=== PATIENT | male | born 1950 | race African-American/Black ===

== ENCOUNTER 2019-03-30 18:50 | Emergency (ER) | payer BC, OTHER ==
[~2019-03-30] VITALS: Ht 185.4 cm; Wt 104.3 kg
[2019-03-30 20:43] VITALS: BP 132/80
[2019-03-30] MEDS ORDERED: GENTAMICIN OPTH sol 0.3% 5ml EACHEYE ONE (21:00)
[2019-03-30] MEDS ORDERED: FLUORESCEIN SOD 1 MG TEST STRIP EACHEYE ONE (21:00)
[2019-03-30] MEDS ORDERED: TETRACAINE HCL 0.5% OPTH(EYE) SOLN 4ML EACHEYE ONE (21:00)
== END 2019-03-30 21:50 | disposition home or self-care (01) ==
LOC: ER 18:50
DX: H11.32 Conjunctival hemorrhage, left eye (principal); H16.001 Unspecified corneal ulcer, right eye